=== PATIENT | male | born 1965 | race Two or more races ===

== ENCOUNTER 2017-01-15 21:30 | Emergency (ER) | payer BC ==
[~2017-01-15] VITALS: Ht 172.7 cm; Wt 68.0 kg
[2017-01-15] MEDS ORDERED: ONDANSETRON HCL/PF 4 MG/2 ML VIAL ONE (22:41)
[2017-01-15] MEDS ORDERED: HYDROMORPHONE 1 MG/1 ML DISP.SYRIN ONE (22:41)
[2017-01-15] MEDS: IV NS 0.9% 1,000 ML BAG IV ONE (22:45)
[2017-01-15] MEDS: ONDANSETRON HCL/PF 4 MG/2 ML VIAL IVP ONE (22:46)
[2017-01-15] MEDS: HYDROMORPHONE INJ 2 MG/ML DISP.SYRIN IV ONE (22:47)
[2017-01-15 22:50] LABS: BASOPHILS # (AUTO) 0.1 /CMM (0.0-0.2); BASOPHILS % (AUTO) 0.5 % (0.0-2.0); EOSINOPHILS % (AUTO) 0.2 % (0.0-6.0); HEMATOCRIT 43 % (39-51); HEMOGLOBIN 14.6 g/dL (13.5-17.5); LYMPHOCYTES % (AUTO) 7.5 % (20.0-44.0); MEAN CORPUSCULAR HEMOGLOBIN 30 PG (26.0-33.0); MEAN CORPUSCULAR HGB CONC 34 g/dl (31.0-36.0); MEAN CORPUSCULAR VOLUME 87 fL (80-96); MONOCYTES # (AUTO) 0.9 /CMM (0.1-1.30); MONOCYTES % (AUTO) 6.6 % (2.0-12.0); NEUTROPHILS # (AUTO) 11.5 /CMM (1.8-8.9); NEUTROPHILS % (AUTO) 85.2 % (43.0-81.0); PLATELET COUNT (AUTO) 230 /CMM (150-450); RDW COEFFICIENT OF VARIATION 13.1 (11.5-15.0); RED BLOOD CELL COUNT(AUTO) 4.89 MIL/uL (4.5-6.0); WHITE BLOOD COUNT (AUTO) 13.5 K/uL (4.3-11.0)
[2017-01-15 23:04] LABS: INR 1.04 (0.87-1.13); PROTHROMBIN TIME 11.1 SECS (9.5-12.7)
[2017-01-15 23:09] LABS: ALBUMIN 4.8 g/dL (3.4-5.0); BILIRUBIN,DIRECT 0.2 mg/dL (0.0-0.2); BILIRUBIN,TOTAL 0.9 mg/dL (0.2-1.0); CALCIUM, SERUM 9.2 mg/dL (8.5-10.1); TOTAL PROTEIN, SERUM 7.8 g/dL (6.4-8.2)
[2017-01-15] MEDS ORDERED: CT SWABBABLE VALVE TRANS SET 1 EA INFUS.SET MC ONE (23:10)
[2017-01-15] MEDS ORDERED: IV NS 0.9% 250 ML IV ONE (23:10)
[2017-01-15] MEDS ORDERED: IOHEXOL-300 100 ML VIAL IV ONE (23:10)
[2017-01-16] MEDS ORDERED: BUPIVACAINE 0.5 % PF 150 MG/30 ML VIAL ONE (01:24)
[2017-01-16 02:27] VITALS: BP 132/71
== END 2017-01-16 02:31 | disposition home or self-care (01) ==
LOC: ER 21:34
DX: S20.211A Contusion of right front wall of thorax, initial encounter (principal); S42.001A Fracture of unspecified part of right clavicle, initial encounter for closed fracture; S32.019A Unspecified fracture of first lumbar vertebra, initial encounter for closed fracture; W11.XXXA Fall on and from ladder, initial encounter; Y93.89 Activity, other specified; Y92.89 Other specified places as the place of occurrence of the external cause; Y99.8 Other external cause status
CPT/HCPCS: 36415; 70450-TC; 71260-TC; 72125-TC; 72193-TC; 73030-TC; 73060-TC; 74160-TC; 80048-TC; 80076-TC; 85025-TC; 85730-TC; 86850-TC; A4606; A6403; J1170; J2405; J3490; J7050; Q9967; Z7610